=== PATIENT | male | born 1945 | race Caucasian/White ===

== ENCOUNTER 2022-08-04 09:48 | Day surgery (SDC) | payer MEDICARE, SELFPAY ==
[2022-07-31 14:13] VITALS: BMI 23.6
--- NOTE | 2022-08-03 09:53 | HO.ANESPROP2 ---
Documented by User: Yessica Simms NP 08/03/22 14:11 HPI - Anesthesia Eval Consult details Narrative: 76yo M for Upper Endoscopy and Colonoscopy Stable for 6 month f/u at 05/2022 cardiac visit [facility] Past Medical History Medical History BPH (benign prostatic hyperplasia) CAD (coronary artery disease) Carotid artery disease DM type 2 (diabetes mellitus, type 2) History of placement of stent in LAD coronary artery Hx of pancreatitis Hyperlipidemia Hypertension Hypothyroidism On beta yusra at home ADIEL treated with BiPAP PAD (peripheral artery disease) Surgical History Surgical History History of total replacement of right hip Hx of CABG Hx of colonoscopy Social History Social History Are you a primary director of health care marketing to a significant other at home: No Do you presently have visiting nurse or other home services: No Patient Tobacco Use Status: Never used Tobacco Have you been hit, kicked, punched, or otherwise hurt by someone within the past year? If so, by whom?: No Are you DNR?: No Advance Directives: No Advance Directives Information Provided: Yes Advance Directives on File: No Recently lost weight without trying: No Eating poorly because of decreased appetite: No Nutrition Risks: No Nutritional Risk Poor oral hygiene: No Meds Allergies Allergy/AdvReac Type Severity Reaction Status Date / Time dulaglutide [From [facility]] Allergy Nausea and Verified 07/31/22 14:19 Vomiting, Pancreatitis Penicillins Allergy Hives Verified 07/31/22 14:19 simvastatin Allergy Muscle Verified 07/31/22 14:19 cramps Home Medications Medication Instructions Recorded Confirmed Last Taken Type empagliflozin 25 mg tablet 25 mg PO DAILY 07/31/22 07/31/22 Unknown History (Jardiance) furosemide 20 mg tablet 20 mg PO DAILY 07/31/22 07/31/22 Unknown History glimepiride 4 mg tablet 4 mg PO DAILY 07/31/22 07/31/22 Unknown History irbesartan 150 mg tablet 150 mg PO BID 07/31/22 07/31/22 08/04/22 History isosorbide dinitrate 30 mg tablet 30 mg PO BID 07/31/22 07/31/2222 History levothyroxine 125 mcg tablet 125 mcg PO DAILY 07/31/22 07/31/22 08/04/22 History magnesium 250 mg tablet 250 mg PO BID 07/31/22 07/31/22 Unknown History metformin 1,000 mg tablet 1,000 mg PO BID 07/31/22 07/31/22 Unknown History metoprolol succinate 50 mg 50 mg PO DAILY 07/31/22 07/31/22 08/04/22 History tablet,extended release 24 hr omeprazole 20 mg tablet,delayed 20 mg PO BID 07/31/22 07/31/22 08/04/22 History release Exam Exam Date and Time: August 03, 2022 0953 Height,Weight and Vital Signs: Height 5 ft 11 in Weight 76.657 kg Assessment and Plan Assessment Anesthesia Assessment: Chart Reviewed Documented by User: Vee Rios MD 08/04/22 12:48 HPI - Anesthesia Eval Consult details Narrative: 76yo M for Upper Endoscopy and Colonoscopy Stable for 6 month f/u at 05/2022 cardiac visit [facility] Active Problems Active Problems: CAD. Denies recent CP. Plavix for 1 year till 2 months ago. Now on baby aspirin. Last dose 1 week ago Past Medical History Medical History BPH (benign prostatic hyperplasia) CAD (coronary artery disease) Carotid artery disease DM type 2 (diabetes mellitus, type 2) History of placement of stent in LAD coronary artery Hx of pancreatitis Hyperlipidemia Hypertension Hypothyroidism On beta yusra at home ADIEL treated with BiPAP PAD (peripheral artery disease) Family History Family history of problems with anesthesia: No Surgical History Surgical History History of total replacement of right hip Hx of CABG Hx of colonoscopy History of Problems with Anesthesia: No Social History Social History Are you a primary director of health care marketing to a significant other at home: No Do you presently have visiting nurse or other home services: No Patient Tobacco Use Status: Never used Tobacco Have you been hit, kicked, punched, or otherwise hurt by someone within the past year? If so, by whom?: No Are you DNR?: No Advance Directives: No Advance Directives Information Provided: Yes Advance Directives on File: No Recently lost weight without trying: No Eating poorly because of decreased appetite: No Nutrition Risks: No Nutritional Risk Poor oral hygiene: No Meds Allergies Allergy/AdvReac Type Severity Reaction Status Date / Time dulaglutide [From [facility]] Allergy Nausea and Verified 07/31/22 14:19 Vomiting, Pancreatitis Penicillins Allergy Hives Verified 07/31/22 14:19 simvastatin Allergy Muscle Verified 07/31/22 14:19 cramps Home Medications Medication Instructions Recorded Confirmed Last Taken Type empagliflozin 25 mg tablet 25 mg PO DAILY 07/31/22 07/31/22 Unknown History (Jardiance) furosemide 20 mg tablet 20 mg PO DAILY 07/31/22 07/31/22 Unknown History glimepiride 4 mg tablet 4 mg PO DAILY 07/31/22 07/31/22 Unknown History irbesartan 150 mg tablet 150 mg PO BID 07/31/22 07/31/22 08/04/22 History isosorbide dinitrate 30 mg tablet 30 mg PO BID 07/31/22 07/31/22 08/04/22 History levothyroxine 125 mcg tablet 125 mcg PO DAILY 07/31/22 07/31/22 08/04/22 History magnesium 250 mg tablet 250 mg PO BID 07/31/22 07/31/22 Unknown History metformin 1,000 mg tablet 1,000 mg PO BID 07/31/22 07/31/22 Unknown History metoprolol succinate 50 mg 50 mg PO DAILY 07/31/22 07/31/22 08/04/22 History tablet,extended release 24 hr omeprazole 20 mg tablet,delayed 20 mg PO BID 07/31/22 07/31/22 08/04/22 History release Exam Height,Weight and Vital Signs: Height 5 ft 11 in Weight 76.657 kg Vital Signs Temp Pulse Resp BP Pulse Ox O2 Del Method 98 F 69 19 124/59 L 97 08/04/22 10:45 08/04/22 10:45 08/04/22 10:45 08/04/22 10:45 08/04/22 10:45 08/04/22 10:45 Pertinent Lab Results Pertinent Lab Results: Lab Results 08/04/22 Range/Units 10:46 POC Glucose 160 H (60-115) mg/dL Airway Mallampati Class: II TM Dist: >3cm Neck ROM: Full Partial: Upper Heart: RRR Lungs: CTAB Assessment and Plan Assessment Anesthesia Assessment: Anesthesia Plan Discussed Final Anesthetic Review Family History of Problems with Anesthesia: No History of Problems with Anesthesia: No NPO: Yes ASA Class: III Final Preanesthetic Review: No Changes in Pt Med Stat, Meds/Allgs Chart Reviewed and Consent Obtained/Reviewed Patient Risk: Intermediate Procedure Risk: Low Assessment/Block/Sedation in SS: Assess/Block/Sedation-SS Anesthetic Plan Anesthetic Plan: MAC: Disposition: Standard PACU
[2022-08-04 10:45] VITALS: BP 124/59; PULSE 69; RESP 19; TEMP 36.6; O2SAT 97
[2022-08-04 10:49] LABS: Glucose, Whole Blood 160 mg/dL (60-115)
[2022-08-04] MEDS: Lactated Ringers 1,000 ML 100 ML IVCONT (10:56)
--- NOTE | 2022-08-04 11:45 | P.HPSUR_ITS ---
Pre-Procedural Eval Section A Date of Service: 08/04/22 Section B Chief Complaint: screening,reflux,hx of polyps Details of Present Illness: see H&P, no changes Relevant Family History (Specify if Yes): No Relevant Social History: None Present Medications: see Short Stay Collaborative assessment Medical History: No relevant PMH History of Previous Operations: No relevant previous surgery Allergies: Allergies Allergy/AdvReac Type Severity Reaction Status Date / Time dulaglutide [From [facility]] Allergy Nausea and Verified 07/31/22 14:19 Vomiting, Pancreatitis Penicillins Allergy Hives Verified 07/31/22 14:19 simvastatin Allergy Muscle Verified 07/31/22 14:19 cramps Review of Systems Sugical H&P ROS: Negative: Constitution, Cardiovascular, Respiratory, Neurological, Psychiatric, Hem-Onc, Allergic/Immunologic, Gastrointestinal, Genitourinary, Musculoskeletal, Integumentary, Endocrine and Eyes/Ears/Nose/Throat Exam Surgical H&P Exam: Normal: HEENT, Normal: Heart, Normal: Lungs, Normal: Extremities, Normal: Abdomen, Normal: Skin and Normal: Neurological Plan Diagnosis/Plan: Unchanged I have reviewed the history and physical and performed a pertinent physical examination on my patient. No changes have occurred unless specified.
--- NOTE | 2022-08-04 12:38 | PM.OP ---
Brief Operative Note Date of Service: 08/04/22 Pre-op diagnosis: gerd,screening Post-op diagnosis: same Surgeon: Ryan Rivera Anesthesia: MAC Was an Director Of Cloud Services used for this Procedure?: No Estimated blood loss (mL): 5 Pathology: other Condition: stable Disposition: PACU
[2022-08-04 12:42] VITALS: BP 90/49; PULSE 77; RESP 16; TEMP 36.4; O2SAT 100
[2022-08-04 12:57] VITALS: BP 103/51; PULSE 69; RESP 17; TEMP 36.4; O2SAT 97
--- NOTE | 2022-08-05 14:33 | OP_ITS ---
SURGEON: Ryan Rivera MD INDICATIONS: Gastroesophageal reflux disease and colon cancer screening. PREOPERATIVE DIAGNOSIS: POSTOPERATIVE DIAGNOSIS: PROCEDURE PERFORMED: ESTIMATED BLOOD LOSS: COMPLICATIONS: ANESTHESIA: ASSISTANTS: SPECIMENS: PROCEDURES: Upper endoscopy with biopsy, colonoscopy to the terminal ileum with biopsy and snare polypectomy on 08/04/22. MEDICATIONS: Monitored anesthesia care. DESCRIPTION OF PROCEDURE: History and physical performed. The risks and benefits of the procedure were explained to the patient. Informed consent was obtained. The patient was placed in a left lateral decubitus position. The Olympus video gastroscope was introduced into the esophagus, stomach, and duodenum. Examination was performed. The scope was removed. He was repositioned for colonoscopy. A digital rectal exam was performed and was found to be normal. The Olympus pediatric video colonoscope was introduced into the rectum and advanced to the cecum without difficulty. The cecum was identified by transillumination, palpation, and identification of ileocecal valve. Examination was performed. The scope was removed. He tolerated both procedures well and was taken to recovery in stable condition. FINDINGS: Upper endoscopy: 1. Esophagus: The esophagus was normal. There was a small hiatal hernia. Biopsies were obtained to the EG junction. 2. Stomach: The stomach showed no evidence of masses or ulcers. There were multiple gastric polyps, measuring upwards of 15 mm. Several of these were biopsied. 3. Duodenum: The bulb and second portion were normal. Antral biopsies were obtained from the stomach and biopsies were also obtained from the second portion. Colonoscopy: The terminal ileum was examined and appeared normal. Visualized colonic mucosa was normal. The quality of prep was good. There were multiple polyps removed with a combination of hot snare and biopsy. These were located at 65, 60, and 30 cm, the largest measured approximately 8 mm. There was mild diverticulosis. Retroflexed examination showed small internal hemorrhoids. IMPRESSION: 1. Gastric polyps. 2. Gastroesophageal reflux disease. 3. Colon polyps. RECOMMENDATION: Follow up the biopsy results. MD ABDELRAHMAN Ernst/KING / [id number] MTDKevin
== END 2022-08-04 16:12 | disposition home or self-care (01) ==
PROVIDERS: PCP Internal Medicine; Visit Provider Internal Medicine Gastroenterology
PROC: (CPT 45385; principal; 2022-08-04 11:10)
DX: Z12.11 Encounter for screening for malignant neoplasm of colon (principal); Z86.010 Personal history of colon polyps; D12.4 Benign neoplasm of descending colon; D12.5 Benign neoplasm of sigmoid colon; K57.30 Diverticulosis of large intestine without perforation or abscess without bleeding; K64.8 Other hemorrhoids; K21.9 Gastro-esophageal reflux disease without esophagitis; K31.7 Polyp of stomach and duodenum; K44.9 Diaphragmatic hernia without obstruction or gangrene; K86.1 Other chronic pancreatitis; K86.81 Exocrine pancreatic insufficiency; G47.33 Obstructive sleep apnea (adult) (pediatric); I25.10 Atherosclerotic heart disease of native coronary artery without angina pectoris; I10 Essential (primary) hypertension; E78.5 Hyperlipidemia, unspecified; E03.9 Hypothyroidism, unspecified; I73.9 Peripheral vascular disease, unspecified; E11.9 Type 2 diabetes mellitus without complications; Z95.1 Presence of aortocoronary bypass graft; Z79.84 Long term (current) use of oral hypoglycemic drugs; Z79.899 Other long term (current) drug therapy; Z88.0 Allergy status to penicillin; Z88.8 Allergy status to other drugs, medicaments and biological substances
CPT/HCPCS: 45385; 45380; 43239; 82947; 88305; 88342; J2370